=== PATIENT | female | born 1995 | race Caucasian/White ===

== ENCOUNTER 2017-01-29 14:59 | Emergency (ER) | payer OTHER ==
[~2017-01-29] VITALS: Ht 167.6 cm; Wt 106.6 kg
[~2017-01-29 14:59] MED LIST: ALBUTEROL SULF8.5 GM IH; AMOXICILLIN875 MG PO; BACTRIM,SEPT1 TABLET PO; IBUPROFEN800 MG PO; KEFLEX500 MG PO; MACROBID100 MG PO; METRONIDAZOLE500 MG PO; NORCO 5/3251 TABLET PO; PRENATAL VITAM1 EAC6 PO; PROAIR HFA8.5 GM IH; PROMETHAZINE HC25 M1 PO; RANITIDINE HCL150 MG PO; SINGULAIR10 MG; SPRINTEC1 EACH PO; TYLENOL EXTRA500 MG PO; ULTRAM50 MG PO; ZANTAC150 MG PO; ZOFRAN ODT4 MG PO; ZOLOFT50 MG PO; ZYRTEC10 M2 PO; ZYRTEC10 M3 PO; ZYRTEC5 MG
[2017-01-29 16:14] LABS: HEMATOCRIT 43.6 % (36.0-46.0); MCH 26.4 PG (29.0-34.0); MCHC 31.7 G/DL (30.0-36.0); MCV 83.5 FL (83-99); MEAN PLAT.VOLUME 9.4 uM^3 (9.5-12.4); PLATELET COUNT 231 K/uL (156-360); RBC DIS.WIDTH-CV 12.6 % (11.8-14.6); RBC DIS.WIDTH-SD 38.4 % (39-53); RED BLOOD COUNT 5.22 M/uL (3.80-5.20); WHITE BLOOD COUNT 4.6 K/uL (4.1-10.2)
[2017-01-29 16:47] LABS: CHLORIDE 106 mEq/L (99-109); POTASSIUM 3.9 mEq/L (3.7-5.4)
[2017-01-29 16:48] LABS: SODIUM 137 mEq/L (136-147)
[2017-01-29 16:49] LABS: GLUCOSE 89 mg/dL (70-99)
[2017-01-29 16:51] LABS: ANION GAP 9 MEQ/L (2-14)
[2017-01-29 16:53] LABS: GFR ESTIMATE (CALCULATED) > 59 mL/min/
[2017-01-29 16:54] LABS: UREA NITROGEN (BUN) 7 mg/dL (9-23)
[2017-01-29 17:02] LABS: QUANTITATIVE HCG < 4.0 MIU/ML
[2017-01-29 17:17] LABS: ADD MIUA? YES; BILIRUBIN NEGATIVE; BLOOD NEGATIVE; COLOR YELLOW ((YELLOW)); GLUCOSE (STRIP) NEGATIVE; KETONES NEGATIVE; LEUKOCYTES LARGE; NITRITE NEGATIVE; PROTEIN (STRIP) 30; SPECIFIC GRAVITY 1.023 (1.000-1.030); UROBILINOGEN 0.2 MG/DL (0.2-1.0)
[2017-01-29 17:41] LABS: BACTERIA RARE /HPF; EPITHELIAL CELLS 3+ /HPF; MUCUS 2+ /LPF; UCUL ADDED? YES; WHITE BLOOD CELLS TNTC /HPF (0-5)
[2017-01-29] MEDS ORDERED: ZOFRAN ODT4 MG PO (19:10)
[2017-01-29] MEDS ORDERED: MOTRIN800 MG PO (19:10)
[2017-01-29 20:05] VITALS: BP 132/81
== END 2017-01-29 20:07 | disposition home or self-care (01) ==
LOC: EME 14:59
DX: R11.2 Nausea with vomiting, unspecified (principal); R51 Headache; N39.0 Urinary tract infection, site not specified; Z87.440 Personal history of urinary (tract) infections
CPT/HCPCS: 80048; 81003; 84702; 85027; 87086; 99281; 99284

== ENCOUNTER 2017-07-11 20:41 | Emergency (ER) | payer OTHER ==
[~2017-07-11] VITALS: Ht 167.6 cm; Wt 112.6 kg
[~2017-07-11 20:41] MED LIST changes: +MOTRIN800 MG PO
[2017-07-11 21:36] LABS: HEMATOCRIT 39.7 % (36.0-46.0); MCH 28.4 PG (29.0-34.0); MCHC 33.2 G/DL (30.0-36.0); MCV 85.6 FL (83-99); MEAN PLAT.VOLUME 9.7 uM^3 (9.5-12.4); PLATELET COUNT 308 K/uL (156-360); RBC DIS.WIDTH-CV 11.9 % (11.8-14.6); RBC DIS.WIDTH-SD 36.9 % (39-53); RED BLOOD COUNT 4.64 M/uL (3.80-5.20); WHITE BLOOD COUNT 8.4 K/uL (4.1-10.2)
[2017-07-11 23:55] LABS: ADD MIUA? YES; BILIRUBIN NEGATIVE; BLOOD NEGATIVE; COLOR STRAW ((YELLOW)); GLUCOSE (STRIP) NEGATIVE; KETONES NEGATIVE; LEUKOCYTES TRACE; NITRITE NEGATIVE; PROTEIN (STRIP) NEGATIVE; SPECIFIC GRAVITY 1.012 (1.000-1.030); UROBILINOGEN 0.2 MG/DL (0.2-1.0)
[2017-07-12] MEDS ORDERED: ZOFRAN ODT4 MG PO (00:08)
[2017-07-12] MEDS ORDERED: NORCO 5/3251 TABLET PO (00:08)
[2017-07-12] MEDS ORDERED: [UNRECOGNIZED DRUG - REMARK] (00:14)
[2017-07-12 00:15] LABS: BACTERIA 1+ /HPF; EPITHELIAL CELLS 1+ /HPF; MUCUS TRACE /LPF; RED BLOOD CELLS 0-5 /HPF (0-5); UCUL ADDED? NO; WHITE BLOOD CELLS 0-5 /HPF (0-5)
[2017-07-12 00:23] VITALS: BP 128/75
== END 2017-07-12 00:24 | disposition home or self-care (01) ==
LOC: EME 20:41
DX: O20.9 Hemorrhage in early pregnancy, unspecified (principal); Z3A.01 Less than 8 weeks gestation of pregnancy
CPT/HCPCS: 76801; 81003; 84702; 85027; 99281; 99283

== ENCOUNTER 2017-07-21 18:57 | Emergency (ER) | payer OTHER ==
[~2017-07-21] VITALS: Ht 167.6 cm; Wt 110.4 kg
[~2017-07-21 18:57] MED LIST changes: +[UNRECOGNIZED DRUG - REMARK]
[2017-07-21 19:50] LABS: BASOPHIL (%) 1.4 % (0-1); BASOPHIL COUNT 0.1 K/uL (0-0.1); EOSINOPHIL (%) 1.4 % (0-5); EOSINOPHIL COUNT 0.1 K/uL (0-0.3); HEMATOCRIT 34.5 % (36.0-46.0); HEMOGLOBIN 11.3 G/DL (11.9-15.5); IMMATURE GRANULOCYTE (%) 0.3 % (0.0-0.7); LYMPHOCYTE (%) 35.8 % (15-42); LYMPHOCYTE COUNT 2.4 K/uL (1.0-2.8); MCHC 32.8 G/DL (30.0-36.0); MCV 85.4 FL (83-99); MONOCYTE (%) 5.9 % (3-12); MONOCYTE COUNT 0.4 K/uL (0-0.8); NEUTROPHIL (%) 55.2 % (45-76); NEUTROPHIL COUNT 3.6 K/uL (1.8-6.4); PLATELET COUNT 267 K/uL (156-360); RBC DIS.WIDTH-CV 11.9 % (11.8-14.6); RBC DIS.WIDTH-SD 36.9 % (39-53); RED BLOOD COUNT 4.04 M/uL (3.80-5.20); WHITE BLOOD COUNT 6.6 K/uL (4.1-10.2)
[2017-07-21 21:08] VITALS: BP 96/63
== END 2017-07-21 21:26 | disposition home or self-care (01) ==
LOC: EME 18:57
PROVIDERS: Physician Assistant
DX: O03.9 Complete or unspecified spontaneous abortion without complication (principal); Z3A.11 11 weeks gestation of pregnancy; Z90.49 Acquired absence of other specified parts of digestive tract
CPT/HCPCS: 84702; 85025; 99281; 99284

== ENCOUNTER 2017-12-24 20:17 | Emergency (ER) | payer OTHER ==
[~2017-12-24] VITALS: Ht 167.6 cm; Wt 105.7 kg
[2017-12-24 21:25] LABS: HEMATOCRIT 39.2 % (36.0-46.0); HEMOGLOBIN 12.6 G/DL (11.9-15.5); MCHC 32.1 G/DL (30.0-36.0); MCV 80.8 FL (83-99); PLATELET COUNT 279 K/uL (156-360); RBC DIS.WIDTH-SD 43.9 % (39-53); RED BLOOD COUNT 4.85 M/uL (3.80-5.20); WHITE BLOOD COUNT 9.3 K/uL (4.1-10.2)
[2017-12-24 21:34] LABS: CHLORIDE 110 mEq/L (99-109); POTASSIUM 3.7 mEq/L (3.7-5.4); SODIUM 139 mEq/L (136-147)
[2017-12-24 21:36] LABS: GLUCOSE 89 mg/dL (70-99); TOTAL PROTEIN 7.7 g/dL (6.4-8.3)
[2017-12-24 21:38] LABS: TOTAL BILIRUBIN 0.2 mg/dL (0.0-1.0)
[2017-12-24 21:39] LABS: ALKALINE PHOSPHATASE 104 IU/L (3-129)
[2017-12-24 21:40] LABS: CREATININE 0.8 mg/dL (0.6-1.3); GFR ESTIMATE (CALCULATED) > 59 mL/min/
[2017-12-24 21:41] LABS: AST (GOT) 11 IU/L (2-34); UREA NITROGEN (BUN) 9 mg/dL (9-23)
[2017-12-24 21:42] LABS: ALT (GPT) 12 IU/L (3-49)
[2017-12-24 21:47] LABS: APPEARANCE SL.HAZY ((CLEAR)); BILIRUBIN NEGATIVE; BLOOD NEGATIVE; COLOR YELLOW ((YELLOW)); GLUCOSE (STRIP) NEGATIVE; KETONES NEGATIVE; LEUKOCYTES MODERATE; NITRITE NEGATIVE; PROTEIN (STRIP) NEGATIVE; SPECIFIC GRAVITY 1.026 (1.000-1.030)
[2017-12-24 21:49] LABS: QUANTITATIVE HCG < 4.0 MIU/ML
[2017-12-24 21:58] LABS: BACTERIA 1+ /HPF; EPITHELIAL CELLS 1+ /HPF; MUCUS TRACE /LPF; RED BLOOD CELLS 0-5 /HPF (0-5); UCUL ADDED? NO; WHITE BLOOD CELLS 0-5 /HPF (0-5)
[2017-12-24] MEDS ORDERED: ZOFRAN ODT4 MG PO (23:03)
[2017-12-24] MEDS ORDERED: BENTYL20 MG PO (23:03)
[2017-12-24 23:25] VITALS: BP 116/56
== END 2017-12-24 23:25 | disposition home or self-care (01) ==
LOC: EME 20:17 → RME 20:17
DX: R10.30 Lower abdominal pain, unspecified (principal); K62.5 Hemorrhage of anus and rectum; J45.909 Unspecified asthma, uncomplicated; G43.909 Migraine, unspecified, not intractable, without status migrainosus; F32.9 Major depressive disorder, single episode, unspecified; F17.200 Nicotine dependence, unspecified, uncomplicated; Z79.51 Long term (current) use of inhaled steroids; Z88.1 Allergy status to other antibiotic agents; Z91.09 Other allergy status, other than to drugs and biological substances
CPT/HCPCS: 80053; 81003; 84702; 85027; 99281; 99285

== ENCOUNTER 2017-12-25 20:18 | Emergency (ER) | payer OTHER ==
[~2017-12-25] VITALS: Ht 167.6 cm; Wt 105.4 kg
[~2017-12-25 20:18] MED LIST changes: +BENTYL20 MG PO
[2017-12-25 23:19] VITALS: BP 151/94
== END 2017-12-25 23:20 | disposition home or self-care (01) ==
LOC: EXP 20:18 → EME 20:18 → EXP 23:20
DX: S30.0XXA Contusion of lower back and pelvis, initial encounter (principal); W10.9XXA Fall (on) (from) unspecified stairs and steps, initial encounter; M41.86 Other forms of scoliosis, lumbar region; J45.909 Unspecified asthma, uncomplicated; F17.200 Nicotine dependence, unspecified, uncomplicated; Z90.49 Acquired absence of other specified parts of digestive tract; Z91.048 Other nonmedicinal substance allergy status; Z88.1 Allergy status to other antibiotic agents
CPT/HCPCS: 72100; 72220; 99281; 99282

== ENCOUNTER 2018-01-25 15:41 | Emergency (ER) | payer OTHER ==
[~2018-01-25] VITALS: Ht 167.6 cm; Wt 102.8 kg
[2018-01-25] MEDS ORDERED: NAPROSYN500 MG PO (16:34)
[2018-01-25 16:43] VITALS: BP 137/86
== END 2018-01-25 16:57 | disposition home or self-care (01) ==
LOC: EME 15:41 → EXP 15:41
DX: S43.402A Unspecified sprain of left shoulder joint, initial encounter (principal); X58.XXXA Exposure to other specified factors, initial encounter; F17.200 Nicotine dependence, unspecified, uncomplicated
CPT/HCPCS: 93005; 99281; 99284